=== PATIENT | female | born 1965 ===

== ENCOUNTER 2018-01-24 21:28 | Emergency (ER) | payer OTHER ==
[2018-01-24 21:37] VITALS: O2SAT 98
--- NOTE | 2018-01-24 21:37 | ED PDOC ---
HPI: Psych/Substance Abuse Time Seen by Provider: 01/24/18 21:36 Chief Complaint (Provider): crisis eval History Per: Patient, EMS Additional Complaint(s): 53 y/o female presents for crisis evaluation. Patient has history of depression and has been increasingly depressed for the past few days. Patient has been having intermittent thoughts of wanting to harm herself with no plan. Patient has history of attempt of overdose several years ago. Patient takes Klonopin daily which she states she has been taking as directed. This evening she admits to having a couple of drinks. No associated drug use. PMD: does not recall name Past Medical History Reviewed: Historical Data, Nursing Documentation, Vital Signs - Medical History PMH: Depression, Hypercholesterolemia - Surgical History Surgical History: - Family History Family History: States: No Known Family Hx - Living Arrangements Living Arrangements: With Family - Social History Current smoker - smoking cessation education provided: No Alcohol: Social - Allergies Allergies/Adverse Reactions: Allergies Allergy/AdvReac Type Severity Reaction Status Date / Time No Known Allergies Allergy Verified 01/24/18 21:35 Review of Systems ROS Statement: Except As Marked, All Systems Reviewed And Found Negative Psych: Positive for: Depression, Suicidal ideation Physical Exam - Reviewed Nursing Documentation Reviewed: Yes Vital Signs Reviewed: Yes - Physical Exam Appears: Positive for: Well, Non-toxic, No Acute Distress Skin: Positive for: Normal Color. Negative for: Rash Eye Exam: Positive for: Normal appearance Cardiovascular/Chest: Positive for: Regular Rate, Rhythm Respiratory: Positive for: Normal Breath Sounds Extremity: Positive for: Normal ROM Neurologic/Psych: Positive for: Alert, Oriented - Laboratory Results Result Diagrams: 01/24/18 22:19 01/24/18 22:19 - ECG Interpretation Of ECG: Sinus bradycardia 59 beats per minute, right bundle branch block, reviewed by PA and ED attending O2 Sat by Pulse Oximetry: 98 Pulse Ox Interpretation: Normal Medical Decision Making Medical Decision Makin-year-old female with depression and suicidal ideation. Plan: 1:1 observation Crisis eval CBC CMP BAL ASA level Tylenol level UA UDS EKG CXR As per crisis counselor and psychiatrist produce production team member, Dr. Euceda, patient does meet criteria for admission but she is refusing to sign in. Patient will be screened by [facility]. Disposition - Clinical Impression Clinical Impression: Depression - Patient ED Disposition Is Patient to be Admitted: Transfer of Care - Disposition Disposition: Transfer of Care Disposition Time: 23:55 Condition: FAIR Patient Signed Over To: David ARSHAD,Lashay Kirkland Handoff Comments: Case was signed out pending medical clearance for [facility] evaluation and final disposition Results - Vital Signs Recent Vital Signs: Last Vital Signs Temp 98.2 F 01/24/18 21:35 Pulse 61 01/24/18 21:35 Resp 18 01/24/18 21:35 BP 116/71 01/24/18 21:35 Pulse Ox 98 01/24/18 22:07 - Labs Result Diagrams: 01/24/18 22:19 01/24/18 22:19 Labs: Laboratory Results - last 24 hr 01/24/18 01/24/18 01/24/18 22:19 22:19 22:19 WBC 3.8 L RBC 4.27 Hgb 12.5 Hct 36.9 MCV 86.5 MCH 29.3 MCHC 33.9 RDW 12.9 Plt Count 257 MPV 9.0 Neut % (Auto) 28.7 L Lymph % (Auto) 60.3 H [place] % (Auto) 6.5 Eos % (Auto) 3.4 Baso % (Auto) 1.1 Neut # (Auto) 1.1 L Lymph # (Auto) 2.3 [place] # (Auto) 0.2 Eos # (Auto) 0.1 Baso # (Auto) 0.0 Sodium 140 Potassium 3.8 Chloride 104 Carbon Dioxide 20 L Anion Gap 20 BUN 10 Creatinine 0.5 L Est GFR ( Amer) > 60 Est GFR (Non-Af Amer) > 60 Random Glucose 104 Calcium 8.7 Total Bilirubin 0.8 AST 54 H ALT 66 H Alkaline Phosphatase 92 Total Protein 7.4 Albumin 4.2 Globulin 3.1 Albumin/Globulin Ratio 1.4 Urine Color Urine Clarity Urine pH Ur Specific [place] Urine Protein Urine Glucose (UA) Urine Ketones Urine Blood Urine Nitrate Urine Bilirubin Urine Urobilinogen Ur Leukocyte Esterase Urine RBC (Auto) Urine Microscopic WBC Ur Squamous Epith Cells Salicylates Urine Opiates Screen Negative Urine Methadone Screen Negative Acetaminophen Ur Barbiturates Screen Negative Ur Phencyclidine Scrn Negative Ur Amphetamines Screen Negative U Benzodiazepines Scrn Negative U Oth Cocaine Metabols Negative U Cannabinoids Screen Negative Alcohol, Quantitative 182 H 01/24/18 01/24/18 22:19 22:19 WBC RBC Hgb Hct MCV MCH MCHC RDW Plt Count MPV Neut % (Auto) Lymph % (Auto) [place] % (Auto) Eos % (Auto) Baso % (Auto) Neut # (Auto) Lymph # (Auto) [place] # (Auto) Eos # (Auto) Baso # (Auto) Sodium Potassium Chloride Carbon Dioxide Anion Gap BUN Creatinine Est GFR ( Amer) Est GFR (Non-Af Amer) Random Glucose Calcium Total Bilirubin AST ALT Alkaline Phosphatase Total Protein Albumin Globulin Albumin/Globulin Ratio Urine Color Straw Urine Clarity Clear Urine pH 6.0 Ur Specific [place] 1.006 Urine Protein Negative Urine Glucose (UA) Neg Urine Ketones Negative Urine Blood Small Urine Nitrate Negative Urine Bilirubin Negative Urine Urobilinogen 0.2-1.0 Ur Leukocyte Esterase Neg Urine RBC (Auto) < 1 Urine Microscopic WBC < 1 Ur Squamous Epith Cells < 1 Salicylates 3.1 Urine Opiates Screen Urine Methadone Screen Acetaminophen < 10.0 L Ur Barbiturates Screen Ur Phencyclidine Scrn Ur Amphetamines Screen U Benzodiazepines Scrn U Oth Cocaine Metabols U Cannabinoids Screen Alcohol, Quantitative
[2018-01-24 22:26] LABS: BASO % 1.1 % (0.0-2.0); EOS # 0.1 K/uL (0.0-0.7); EOS % 3.4 % (0.0-4.0); HEMOGLOBIN 12.5 g/dL (12.0-16.0); LYMPH # 2.3 K/uL (1.0-4.3); LYMPH % 60.3 % (20.0-40.0); MEAN CELL VOLUME 86.5 fl (81.0-99.0); MEAN CORPUSCULAR HEMOGLOBIN 29.3 pg (27.0-31.0); MEAN CORPUSCULAR HGB CONC 33.9 g/dL (33.0-37.0); MONO # 0.2 K/uL (0.0-0.8); MONO % 6.5 % (0.0-10.0); NEUT # 1.1 K/uL (1.8-7.0); NEUT % 28.7 % (50.0-75.0); NRBC % 0.1 % (0.0-0.0); RBC 4.27 Mil/uL (3.80-5.20); RED CELL DISTRIBUTION WIDTH 12.9 % (11.5-14.5); WHITE BLOOD COUNT 3.8 K/uL (4.8-10.8)
[2018-01-24 22:34] LABS: SQUAMOUS EPITHIAL < 1 /hpf (0-5); URINE BILIRUBIN NEGATIVE (NEGATIVE); URINE BLOOD SMALL (NEGATIVE); URINE CLARITY CLEAR (Clear); URINE COLOR STRAW (YELLOW); URINE GLUCOSE (UA) NEG (Normal); URINE LEUKOCYTE ESTERASE NEG Leu/uL (Negative); URINE PROTEIN NEGATIVE (NEGATIVE); URINE UROBILINOGEN 0.2-1.0 mg/dL (0.2-1.0)
[2018-01-24 22:35] LABS: ACETAMINOPHEN < 10.0 ug/ml (10.0-30.0); ALB/GLOB RATIO 1.4 (1.0-2.1); ALBUMIN 4.2 g/dL (3.5-5.0); ALT/SGPT 66 U/L (9-52); AST/SGOT 54 U/L (14-36); BLOOD UREA NITROGEN 10 mg/dl (7-17); CALCIUM 8.7 mg/dL (8.4-10.2); GFR NON-AFRICAN AMERICAN > 60; SALICYLATE 3.1 mg/dl
[2018-01-24 22:43] LABS: BARBITURATES, UR NEGATIVE (NEGATIVE); BENZODIAZEPINES, UR NEGATIVE (NEGATIVE); OPIATES, UR NEGATIVE (NEGATIVE); PHENCYCLIDINE, UR NEGATIVE (NEGATIVE)
--- NOTE | 2018-01-25 02:26 | ED PDOC ---
- Laboratory Results Result Diagrams: 01/24/18 22:19 01/24/18 22:19 <FrancesMarie cheung Josh - Last Filed: 01/25/18 06:54> - Laboratory Results Result Diagrams: 01/24/18 22:19 01/24/18 22:19 - ECG O2 Sat by Pulse Oximetry: 98 (RA) Pulse Ox Interpretation: Normal <Lashay Hernandez PA-C - Last Filed: 01/25/18 23:32> Medical Decision Making <Marie Celestin - Last Filed: 01/25/18 06:54> <Lashay Hernandez PA-C - Last Filed: 01/25/18 23:32> Medical Decision Makin:00 --Care endorsed to me by SHAILA Galvan pending [facility] screening and CXR. 01:00 On re-evaluation, patient reports improvement of symptoms, denies any SI or currently feeling depressed, states that she verbalized those words earlier as she was drinking alcohol. However she has no intentions of harming herself or others. On exam, patient remains AAOx3, in no acute distress. Lungs clear to auscultation, cardiac RRR, repeat neuro exam shows no focal findings. Patient offered inpatient psych admission to this hospital however she is refusing. Crisis notified, however she still needs [facility] screen as she verbalized earlier that she had SI. CXR still pending. 03:10 CXR: NAD, as read by SHAILA Patient is now medically cleared, crisis notified. 06:00 Patient is sleeping comfortably in no acute distress. Breathing easy and unlabored, she is still on 1:1 obs. Still pending [facility] screen. T 97 P 68 R 16 BP 105/68 O2sat 98%RA. (Lashay Hernandez PA-C) Disposition - POA Present On Arrival: None - Disposition Disposition: Transfer of Care Disposition Time: 07:00 Patient Signed Over To: Evans Dutton Handoff Comments: pending bed assignment at [facility] <Marie Celetsin - Last Filed: 01/25/18 06:54> - POA Present On Arrival: None <Lashay Hernandez PA-C - Last Filed: 01/25/18 23:32> - Clinical Impression Clinical Impression: Adjustment disorder, Alcohol intoxication - Disposition Referrals: [facility] [Outside] Condition: STABLE Instructions: Adjustment Disorder Forms: [employer] (Turkish) Print Language: PASHTO - PA / MONEY POSITION OFFICER / Resident Statement MD/DO has reviewed & agrees with the documentation as recorded. <Lashay Hernandez PA-C - Last Filed: 01/25/18 23:32>
[2018-01-25 06:57] VITALS: TEMP 97.7
--- NOTE | 2018-01-25 07:20 | ED PDOC ---
- Laboratory Results Result Diagrams: 01/24/18 22:19 01/24/18 22:19 - ECG O2 Sat by Pulse Oximetry: 98 (RA) Pulse Ox Interpretation: Normal - Progress ED Course And Treament: 952: Dr. Latif to take over care. Bonilla on [facility]. Stable. Medical Decision Making Medical Decision Making: Time: 699 -- 53 y/o female presents to the ED for crisis evaluation, pending [facility] evaluation. Scribe Attestation: Documented by Eve Fatima acting as a scribe for Dr. Evans Dutton MD. Provider Scribe Attestation: All medical record entries made by the Scribe were at my direction and personally dictated by me. I have reviewed the chart and agree that the record accurately reflects my personal performance of the history, physical exam, medical decision making, and the department course for this patient. I have also personally directed, reviewed, and agree with the discharge instructions and disposition. Disposition - Clinical Impression Clinical Impression: Depression - POA Present On Arrival: None - Disposition Disposition: Transfer of Care Disposition Time: 09:52 Condition: STABLE Patient Signed Over To: Alejandra Latif
--- NOTE | 2018-01-25 09:21 | RAD ---
Date of service: 01/25/2018 HISTORY: clearance COMPARISON: No prior. FINDINGS: LUNGS: No active pulmonary disease. PLEURA: No significant pleural effusion identified, no pneumothorax apparent. CARDIOVASCULAR: Normal. OSSEOUS STRUCTURES: Degenerative changes. VISUALIZED UPPER ABDOMEN: Normal. OTHER FINDINGS: None. IMPRESSION: No active disease.
--- NOTE | 2018-01-25 11:19 | ED PDOC ---
- Laboratory Results Result Diagrams: 01/24/18 22:19 01/24/18 22:19 - ECG O2 Sat by Pulse Oximetry: 98 (RA) Medical Decision Making Medical Decision Makin:15 Pt cleared by [facility] and Dr. Euceda. Disposition - Clinical Impression Clinical Impression: Adjustment disorder - POA Present On Arrival: None - Disposition Referrals: [facility] [Outside] Disposition: Routine/Home Disposition Time: 11:19 Condition: STABLE Instructions: Adjustment Disorder Forms: [employer] (Cambodian) Print Language: ALBANIAN Addendum Addendum: 01/25/18 10:00 Pt signed out [address] Dr. Dutton pending [facility] screening.
[2018-01-25 11:43] VITALS: BP 110/70; PULSE 70; RESP 18
--- NOTE | 2018-01-26 17:53 | CARD ---
APPROVED REPORT Date of service: 01/24/2018 EKG Measurement Heart [id number] <Conclusion> Sinus bradycardia Right bundle branch block Abnormal ECG
== END 2018-01-25 11:37 | disposition home or self-care (01) ==
LOC: H.ER 21:28
DX: F32.9 Major depressive disorder, single episode, unspecified (principal); F43.20 Adjustment disorder, unspecified; Z00.8 Encounter for other general examination; F10.129 Alcohol abuse with intoxication, unspecified; E78.00 Pure hypercholesterolemia, unspecified